=== PATIENT | male | born 2000 | race Caucasian/White ===

== ENCOUNTER 2025-03-06 15:36 | Emergency (ER) | payer OTHER, SELFPAY ==
[2025-03-06 15:43] VITALS: BP 148/109
[2025-03-06] MEDS: OMNIPAQUE 50 ML PO (16:00)
[2025-03-06 16:10] LABS: Hematocrit 44.6 % (39.0-52.0); Hemoglobin 16.1 g/dL (13.0-18.0); Mean Corp Hgb Conc. 36.1 g/dL (33.0-37.0); Mean Corpuscular Volume 84.0 fL (80.0-94.0); Nucleated Red Blood Cells % 0 % (-); Platelet Count 214 10^3/uL (130-400); Red Cell Dist. Width 12.1 % (11.5-14.5)
[2025-03-06 16:32] LABS: ALT (SGPT) 52 U/L (0-50); AST (SGOT) 36 U/L (17-59); Albumin 4.8 g/dl (3.5-5.0); Alkaline Phosphatase 91 U/L (38-126); Blood Urea Nitrogen 7 mg/dl (9-20); Calcium 9.6 mg/dl (8.4-10.2); Carbon Dioxide 29 mmol/L (22-30); Glucose 98 mg/dl (70-99); Lipase 49 U/L (23-300); Total Protein 7.3 g/dl (6.3-8.2); eGFR > 60.00
[2025-03-06 16:39] LABS: Chloride 103 mmol/L (98-107); Potassium 4.3 mmol/L (3.5-5.1); Sodium 140 mmol/L (135-145)
--- NOTE | 2025-03-06 19:14 | ED.GENMED ---
History of Present Illness
<Flor Beltran MD, Resident - Last Filed: 03/06/25 22:30>
General
Chief Complaint: Abdominal Pain
Source: patient
Exam Limitations: none
Time Seen by Provider: 03/06/25 18:46
Nursing documentation reviewed up to this point in time: agreed with
History of Present Illness
History of Present Illness:
24-year-old male with no significant past medical history comes to the ED due to severe right-sided abdominal pain that started around Sunday. He has been nauseous and vomited some yellow fluid and the pain has gotten progressively worse since
Sunday. He has not had any fevers or chills and he states that he has not had mid lower back pain alongside the abdominal pain. He says the pain comes and goes but Advil did not help with the pain. He had instance of diarrhea last night however
had normal bowel movement this morning. Does not report any chest pain, shortness of breath, headaches.
Past History
<Flor Beltran MD, Resident - Last Filed: 03/06/25 22:30>
Past History
ED Past Medical History: None
ED Past Surgical History: None
Social History
Tobacco: Non-smoker
Alcohol: None
Drug: None
Review of Systems
<Flor Beltran MD, Resident - Last Filed: 03/06/25 22:30>
Review of Systems
Allergies reviewed?: Yes
Constitutional: Denies fever or chills
EENT: Reports no symptoms
Respiratory: Reports no symptoms
Cardiac: Reports no symptoms
ABD/GI: Reports abdominal pain, nausea, vomiting and diarrhea
: Reports no symptoms
Musculoskeletal: Reports back pain (Lower mid back)
Skin: Reports no symptoms
Neurological: Reports no symptoms
Endocrine: Reports no symptoms
Hematologic/Lymphatic: Reports no symptoms
Psychiatric: Reports no symptoms
Phy Exam
<Flor Beltran MD, Resident - Last Filed: 03/06/25 22:30>
General Physical Exam
General Presentation: well appearing and mild distress
General Skin: warm and dry
General Habitus: normal
General Mental: alert
General Hydration: appears well hydrated
Cardiovascular Exam
Cardiovascular Exam: regular rate/rhythm, no edema and no murmur
Pulmonary Exam
Pulmonary Exam: lungs clear, no respiratory distress, no crackles and no wheezing
Gastrointestinal Exam
Gastrointestinal Exam: normal bowel sounds and distended
Palpation: left upper quadrant: No tenderness, left lower quadrant: No tenderness, right upper quadrant: Moderate tenderness and right lower quadrant: Mild tenderness
Musculoskeletal Exam
Musculoskeletal Exam: back pain (Lower mid back)
Course
<Flor Beltran MD, Resident - Last Filed: 03/06/25 22:30>
Orders/Labs/Results
Orders:
Orders
03/06/25 15:51
Complete Blood Count/With Diff Urgent
Comprehensive Metabolic Panel Urgent
Lipase Urgent
Iohexol [Omnipaque] 50 ml .ROUTE .K-MED ONE
03/06/25 16:05
Iohexol [Omnipaque] See Protocol PO NOW STA
03/06/25 19:13
CT Abd/pel W Iv And Oral Contr Urgent
Comment: Has already drank oral contrast
Reason For Exam: Right upper quadrant abdominal pain
US Abdomen Complete/Upper Urgent
Comment:
Reason For Exam: Right upper quadrant abdominal pain
03/06/25 21:52
Ketorolac [Toradol] 15 mg IM NOW STA
03/06/25 22:06
Ketorolac [Toradol] 15 mg IV NOW STA
Abnormal Lab Results
03/06/25
15:51
MPV 10.5 H fL
(7.4-10.4)
Absolute Monos (auto) 0.7 H 10^3/uL
(0.1-0.6)
Lymphocytes % 19.5 L %
(20.5-51.1)
BUN 7 L mg/dl
(9-20)
Total Bilirubin 1.5 H mg/dl
(0.2-1.3)
ALT 52 H U/L
(0-50)
03/06/25 15:51
03/06/25 15:51
Vital Signs
Initial and Last Documented VS:
Initial Vital Signs
Temp Pulse Resp BP Pulse Ox
98.6 F 79 18 148/109 97
03/06/25 15:43 03/06/25 15:43 03/06/25 15:43 03/06/25 15:43 03/06/25 15:43
Last Documented Vital Signs
Temp Pulse Resp BP Pulse Ox
98.6 F 79 18 148/109 97
03/06/25 15:43 03/06/25 15:43 03/06/25 15:43 03/06/25 15:43 03/06/25 19:21
<Jay Arenas, DO - Last Filed: 03/06/25 22:04>
Orders/Labs/Results
Orders:
Orders
03/06/25 15:51
Complete Blood Count/With Diff Urgent
Comprehensive Metabolic Panel Urgent
Lipase Urgent
Iohexol [Omnipaque] 50 ml .ROUTE .STK-MED ONE
03/06/25 16:05
Iohexol [Omnipaque] See Protocol PO NOW STA
03/06/25 19:13
CT Abd/pel W Iv And Oral Contr Urgent
Comment: Has already drank oral contrast
Reason For Exam: Right upper quadrant abdominal pain
US Abdomen Complete/Upper Urgent
Comment:
Reason For Exam: Right upper quadrant abdominal pain
03/06/25 21:52
Ketorolac [Toradol] 15 mg IM NOW STA
03/06/25 22:06
Ketorolac [Toradol] 15 mg IV NOW STA
Abnormal Lab Results
03/06/25
15:51
MPV 10.5 H fL
(7.4-10.4)
Absolute Monos (auto) 0.7 H 10^3/uL
(0.1-0.6)
Lymphocytes % 19.5 L %
(20.5-51.1)
BUN 7 L mg/dl
(9-20)
Total Bilirubin 1.5 H mg/dl
(0.2-1.3)
ALT 52 H U/L
(0-50)
03/06/25 15:51
03/06/25 15:51
Vital Signs
Initial and Last Documented VS:
Initial Vital Signs
Temp Pulse Resp BP Pulse Ox
98.6 F 79 18 148/109 97
03/06/25 15:43 03/06/25 15:43 03/06/25 15:43 03/06/25 15:43 03/06/25 15:43
Last Documented Vital Signs
Temp Pulse Resp BP Pulse Ox
98.6 F 79 18 148/109 97
03/06/25 15:43 03/06/25 15:43 03/06/25 15:43 03/06/25 15:43 03/06/25 19:21
<Flor Beltran MD, Resident - Last Filed: 03/06/25 22:30>
MDM/Problems Addressed
Differential Diagnosis Includes:
Cholelithiasis, Acute Cholecystitis, Appendicitis, Pancreatitis
MDM/Problems Addressed:
24 year old male with no significant past medical history comes to the ED due to Abdominal pain that began on Sunday
CMP shows elevated Bilirubin and ALT levels giving concern for possible Gallbladder related etiology (Especially coupled with upper right quadrant abdominal tenderness)
Will check CT Abd/Pel w/ IV and Oral contrast and Ultrasound Abd- due to possible Cholelithiasis/Cholecystitis vs Appendicitis
Lipase checked for possible pancreatitis (No history of alcohol use) -> within normal limits
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
Will give dose of IM Toradol
Discuss management conservatively with NSAIDs
Will give information about General Surgery
Ask him to return to the ED if his symptoms are not controlled with NSAIDs/Get worse
<Flor Beltran MD, Resident - Last Filed: 03/06/25 22:30>
*Pulse Oximetry
SaO2: 97
Oxygen Mode of Delivery: Room air
Patient hypoxic: no
*Critical Care Note
Total Time (30-74mins, 75-104mins- exclusive of procedures): Not Applicable
ED Attending Note
<Flor Beltran MD, Resident - Last Filed: 03/06/25 22:30>
-
Portions of this chart may have been created with voice recognition software.� Occasional wrong word or��sound alike� substitutions may have occurred due to the inherent limitations of voice recognition software.
<Jay Arenas, - Last Filed: 03/06/25 22:04>
ED Attending Note
Patient seen and examined by attending physician: Yes
ED Attending Note:
Seen with resident examined independently 24-year-old male with his mother presents with right sided abdominal pain for a few days looks well here, minimal pain on exam white count noted ultrasound CAT scan noted
Patient with an omental infarct, versus epiploic appendagitis, typically treated nonoperatively reviewed with patient we will start on NSAIDs, return to the ER for worsening symptoms updated the patient there is a small chance he may need a surgery
in the future but I do not see an indication for surgery at this point
Discharge Plan
Departure
Patient Disposition: Home (Routine Discharge)
Date of Disposition: 03/06/25
Time of Disposition: 22:27
Patient with high blood pressure during this ER visit?: Yes
Condition: Good
Discharge Problem:
Omental infarction
Instructions: Abdominal Pain, BLOOD PRESSURE
Prescriptions:
New
ibuprofen 600 mg tablet
600 mg PO TID PRN (Reason: abdominal pain) Qty: 30 0RF
Referrals:
Tres Russell MD [Active, Surgical]
Referral Note: Make appointment if pain continues to worsen
UNKNOWN - PT DOES,NOT KNOW [Unknown Provider]
Activity Restrictions/Additional Instructions:
As discussed, we have sent 600mg Ibuprofen to your pharmacy. Take that medication up to 3 times daily to help manage pain.
If the pain continues to worsen or if you develop other symptoms such as fever/chills and worsening abdominal pain, come back to the ED.
If the pain persists, you can follow up with General Surgery for an opinion regarding management of your Omental Infarct that was found on CT scan
Interventions
Interventions:
*Risk Screen - Suicide Last Done: 03/06/25 19:24
*General Assessment Last Done: 03/06/25 15:43
*Neglect/Abuse Screening Last Done: 03/06/25 19:24
*ED COVID-19 Vaccine History Last Done: 03/06/25 15:43
CC-Dndxsz-Hszgprbhkx Assessment Last Done: 03/06/25 19:23
Discharge Date and Time
Print Language: INDONESIAN
[2025-03-06] MEDS: TORADOL 15 MG IV (22:10)
== END 2025-03-06 22:59 | disposition home or self-care (01) ==
LOC: EMR 15:36
PROVIDERS: Student in an Organized Health Care Education/Training Program; EMERGENCY PHYSICIAN Emergency Medicine; FAMILY PHYSICIAN Family Medicine
DX: K55.069 Acute infarction of intestine, part and extent unspecified (principal); R03.0 Elevated blood-pressure reading, without diagnosis of hypertension
CPT/HCPCS: 99285; 96374; 74177; 76700; 80053; 83690; 85025; Q9967